=== PATIENT | male | born 1950 | race Caucasian/White ===

== ENCOUNTER → 2020-06-03 14:00 | Outpatient (CLI) | payer MEDICARE, SELFPAY ==
[2020-06-03 15:23] LABS: INR 2.32 (0.9-1.1); Prothrombin Time 22.7 seconds (9.4-11.8)
== END ==
PROVIDERS: Visit Provider Family Medicine
DX: I82.409 Acute embolism and thrombosis of unspecified deep veins of unspecified lower extremity (principal)
CPT/HCPCS: 36415; 85610

== ENCOUNTER → 2020-12-11 14:41 | Outpatient (CLI) | payer MEDICARE, SELFPAY ==
[2020-12-11 15:40] LABS: Basophils % 0.3 % (0.1-2.0); Eosinophils % 0.5 % (0.1-12.0); Hematocrit 46.9 % (42.0-52.0); Hemoglobin 14.9 g/dL (14.1-18.0); Lymphocytes # 1.2 K/mm3 (0.7-4.5); Lymphocytes % 23.7 % (10-50); Mean Corpuscular HGB Conc 31.8 g/dL (31.8-35.4); Mean Corpuscular Hemoglobin 28.5 pg (27.0-31.2); Mean Corpuscular Volume 89.8 fl (80-94); Monocytes # 0.3 K/mm3 (0.1-1.0); Monocytes % 6.8 % (1.7-9.3); Neutrophils # 3.4 K/mm3 (1.8-7.8); Neutrophils % 68.8 % (37.0-80.0); Platelet Count 170 K/mm3 (142-424); Red Blood Count 5.22 M/mm3 (4.60-6.20); Red Cell Distribution Width 15.7 % (11.5-17.5)
[2020-12-11 15:53] LABS: INR 2.02 (0.9-1.1)
[2020-12-11 16:05] LABS: Alanine Aminotransferase 21 U/L (12-78); Albumin Level 4.3 g/dl (3.5-5.0); Albumin/Globulin Ratio 1.4 (1.1-1.8); Alkaline Phosphatase 94 U/L (38-126); Anion Gap 10.3 mEq/L (5-15); Aspartate Amino Transferase 33 U/L (17-59); Bilirubin,Total 0.6 mg/dl (0.2-1.3); Blood Urea Nitrogen 14 mg/dl (9-20); Calcium 9.2 mg/dl (8.4-10.2); Carbon Dioxide 30 mmol/L (22.0-30.0); Chloride 101 mmol/L (98-107); Chol/HDL Ratio 2.6 (1-3.5); Cholesterol 127 mg/dl (140-200); Estimated Glomerular Filt Rate 66 ml/min (>60); GFR (African American) 80 ML/MIN (>60); Glucose 97 mg/dl (74-100); HDL Cholesterol 49 mg/dl (40-60); Potassium 4.3 mmoL/L (3.5-5.1); Sodium 137 mmol/L (136-145); Total Protein,Serum 7.3 g/dl (6.3-8.2); Triglycerides 90 mg/dl (30-150); VLDL Cholesterol 18 mg/dL (0-40)
[2020-12-11 16:22] LABS: Direct LDL Cholesterol 52.97 mg/dL (100-129)
[2020-12-11 16:36] LABS: Prostate Specific Ag Screen 0.5 ng/ml (0.0-4.0)
== END ==
PROVIDERS: Visit Provider Family Medicine
DX: I82.409 Acute embolism and thrombosis of unspecified deep veins of unspecified lower extremity (principal); K29.70 Gastritis, unspecified, without bleeding; E78.5 Hyperlipidemia, unspecified; Z12.5 Encounter for screening for malignant neoplasm of prostate; Z51.81 Encounter for therapeutic drug level monitoring; Z79.01 Long term (current) use of anticoagulants
CPT/HCPCS: 36415; 80053; 80061; 85025; 85610; G0103

== ENCOUNTER → 2021-09-29 18:16 | Outpatient (CLI) | payer MEDICARE, SELFPAY | PROVIDERS: Visit Provider Family Medicine | DX: Z20.822 Contact with and (suspected) exposure to COVID-19 (principal); J32.9 Chronic sinusitis, unspecified; R51.9 Headache, unspecified | CPT/HCPCS: C9803; U0003; U0005 ==

== ENCOUNTER → 2021-11-16 17:14 | Outpatient (CLI) | payer MEDICARE, SELFPAY | PROVIDERS: Visit Provider Family Medicine | DX: U07.1 COVID-19 (principal) | CPT/HCPCS: C9803; U0003; U0005 ==

== ENCOUNTER 2021-11-23 07:46 | Outpatient (CLI) | payer MEDICARE, SELFPAY ==
[2021-11-23] VITALS (8 sets, daily range): BP systolic 114–141; BP diastolic 54–87; PULSE 50–66; RESP 18; TEMP 36.5–36.6; O2SAT 94–97
== END 2021-11-23 11:30 | disposition home or self-care (01) ==
LOC: COVID.OUT 07:47
PROVIDERS: PCP Family Medicine; Visit Provider Family Medicine
DX: U07.1 COVID-19 (principal); Z23 Encounter for immunization
CPT/HCPCS: 96365

== ENCOUNTER → 2023-06-10 11:00 | Outpatient (CLI) | payer MEDICARE, SELFPAY ==
[2023-06-10 18:16] LABS: Basophils % 0.1 % (0.1-2.0); Eosinophils # 0.1 K/mm3 (0.0-0.4); Eosinophils % 1.7 % (0.1-12.0); Hematocrit 44.8 % (42.0-52.0); Hemoglobin 14.4 g/dL (14.1-18.0); Lymphocytes # 1.1 K/mm3 (0.7-4.5); Lymphocytes % 25.7 % (10-50); Mean Corpuscular HGB Conc 32.2 g/dL (31.8-35.4); Mean Corpuscular Hemoglobin 29.8 pg (27.0-31.2); Mean Corpuscular Volume 92.5 fl (80-94); Mean Platelet Volume 8.8 fl (7.4-10.4); Monocytes # 0.4 K/mm3 (0.1-1.0); Monocytes % 10.1 % (1.7-9.3); Neutrophils # 2.7 K/mm3 (1.8-7.8); Neutrophils % 62.4 % (37.0-80.0); Platelet Count 174 K/mm3 (142-424); Red Blood Count 4.84 M/mm3 (4.60-6.20); Red Cell Distribution Width 14.7 % (11.5-17.5); White Blood Count 4.3 K/mm3 (4.8-10.8)
[2023-06-10 18:34] LABS: Alanine Aminotransferase 23 U/L (12-78); Albumin/Globulin Ratio 1.6 (1.1-1.8); Alkaline Phosphatase 93 U/L (38-126); Anion Gap 10.6 mEq/L (5-15); Aspartate Amino Transferase 32 U/L (17-59); Bilirubin,Total 0.4 mg/dl (0.2-1.3); Blood Urea Nitrogen 16 mg/dl (9-20); Calcium 8.8 mg/dl (8.4-10.2); Carbon Dioxide 27 mmol/L (22.0-30.0); Chloride 107 mmol/L (98-107); Chol/HDL Ratio 3.4 (1-3.5); Cholesterol 117 mg/dl (140-200); Estimated Glomerular Filt Rate 65 ml/min (>60); GFR (African American) 79 ML/MIN (>60); Globulin 2.5 g/dL (1.3-3.2); Glucose 88 mg/dl (74-100); HDL Cholesterol 34 mg/dl (40-60); Potassium 3.6 mmoL/L (3.5-5.1); Sodium 141 mmol/L (136-145); Total Protein,Serum 6.5 g/dl (6.3-8.2); Triglycerides 120 mg/dl (30-150); VLDL Cholesterol 24 mg/dL (0-40)
[2023-06-10 18:44] LABS: Direct LDL Cholesterol 60.44 mg/dL (100-129)
[2023-06-10 19:02] LABS: Prostate Specific Ag Screen 0.5 ng/ml (0.0-4.0)
== END ==
PROVIDERS: PCP Family Medicine; Visit Provider Family Medicine
DX: M25.562 Pain in left knee (principal); Z12.5 Encounter for screening for malignant neoplasm of prostate; E78.5 Hyperlipidemia, unspecified
CPT/HCPCS: 80053; 80061; 85025; G0103

== ENCOUNTER 2024-06-07 10:15 | Outpatient (CLI) | payer MEDICARE, SELFPAY ==
[2024-06-07 18:12] LABS: Basophils % 0.7 % (0.1-2.0); Eosinophils % 0.7 % (0.1-12.0); Hematocrit 47.7 % (42.0-52.0); Hemoglobin 15.6 g/dL (14.1-18.0); Lymphocytes # 0.9 K/mm3 (0.7-4.5); Lymphocytes % 20.7 % (10-50); Mean Corpuscular HGB Conc 32.6 g/dL (31.8-35.4); Mean Corpuscular Hemoglobin 32.5 pg (27.0-31.2); Mean Corpuscular Volume 99.5 fl (80-94); Mean Platelet Volume 9.3 fl (7.4-10.4); Monocytes # 0.4 K/mm3 (0.1-1.0); Monocytes % 9.5 % (1.7-9.3); Neutrophils # 2.9 K/mm3 (1.8-7.8); Neutrophils % 68.3 % (37.0-80.0); Platelet Count 164 K/mm3 (142-424); Red Blood Count 4.79 M/mm3 (4.60-6.20); Red Cell Distribution Width 15.2 % (11.5-17.5); White Blood Count 4.3 K/mm3 (4.8-10.8)
[2024-06-07 18:35] LABS: Alanine Aminotransferase 38 U/L (12-78); Albumin Level 3.9 g/dl (3.5-5.0); Albumin/Globulin Ratio 1.4 (1.1-1.8); Alkaline Phosphatase 100 U/L (38-126); Aspartate Amino Transferase 38 U/L (17-59); Bilirubin,Total 0.5 mg/dl (0.2-1.3); Blood Urea Nitrogen 14 mg/dl (9-20); Calcium 9.2 mg/dl (8.4-10.2); Carbon Dioxide 26 mmol/L (22.0-30.0); Chloride 108 mmol/L (98-107); Chol/HDL Ratio 3.2 (1-3.5); Cholesterol 114 mg/dl (140-200); Estimated Glomerular Filt Rate 65 ml/min (>60); GFR (African American) 79 ML/MIN (>60); Globulin 2.7 g/dL (1.3-3.2); Glucose 95 mg/dl (74-100); HDL Cholesterol 36 mg/dl (40-60); Sodium 138 mmol/L (136-145); Total Protein,Serum 6.6 g/dl (6.3-8.2); Triglycerides 106 mg/dl (30-150); VLDL Cholesterol 21 mg/dL (0-40)
[2024-06-07 18:46] LABS: Direct LDL Cholesterol 58.67 mg/dL (100-129)
[2024-06-07 19:05] LABS: Thyroid Stimulating Hormone 0.72 uIU/mL (0.465-4.68)
== END 2024-06-07 23:59 | disposition home or self-care (01) ==
LOC: LAB.DROPOF 06-08 10:07
PROVIDERS: PCP Family Medicine; Visit Provider Family Medicine
DX: E78.5 Hyperlipidemia, unspecified (principal); Z12.5 Encounter for screening for malignant neoplasm of prostate
CPT/HCPCS: 80050; 80053; 80061; 84443; 85025

== ENCOUNTER 2024-06-11 10:08 | Outpatient (CLI) | payer MEDICARE, SELFPAY ==
[2024-06-11 18:51] LABS: INR 1.11 (0.9-1.1); Prothrombin Time 12.3 seconds (10.1-12.5)
== END 2024-06-11 23:59 | disposition home or self-care (01) ==
LOC: LAB.DROPOF 06-12 10:09
PROVIDERS: PCP Family Medicine; Visit Provider Family Medicine
DX: I82.409 Acute embolism and thrombosis of unspecified deep veins of unspecified lower extremity (principal)
CPT/HCPCS: 85610

== ENCOUNTER 2024-08-17 10:04 | Outpatient (CLI) | payer MEDICARE, SELFPAY ==
[2024-08-17 18:46] LABS: Basophils % 0.3 % (0.1-2.0); Eosinophils % 0.8 % (0.1-12.0); Hematocrit 46.5 % (42.0-52.0); Hemoglobin 14.4 g/dL (14.1-18.0); Lymphocytes # 0.8 K/mm3 (0.7-4.5); Lymphocytes % 18.8 % (10-50); Mean Corpuscular Hemoglobin 30.4 pg (27.0-31.2); Mean Corpuscular Volume 98.1 fl (80-94); Mean Platelet Volume 7.9 fl (7.4-10.4); Monocytes # 0.3 K/mm3 (0.1-1.0); Monocytes % 7.7 % (1.7-9.3); Neutrophils # 3.2 K/mm3 (1.8-7.8); Neutrophils % 72.5 % (37.0-80.0); Platelet Count 216 K/mm3 (142-424); Red Blood Count 4.74 M/mm3 (4.60-6.20); Red Cell Distribution Width 14.5 % (11.5-17.5); White Blood Count 4.4 K/mm3 (4.8-10.8)
[2024-08-17 20:03] LABS: Prostate Specific Ag Screen 0.5 ng/ml (0.0-4.0)
== END 2024-08-17 23:59 | disposition home or self-care (01) ==
LOC: LAB.DROPOF 08-20 10:04
PROVIDERS: PCP Family Medicine; Visit Provider Family Medicine
DX: E78.5 Hyperlipidemia, unspecified (principal); Z12.5 Encounter for screening for malignant neoplasm of prostate
CPT/HCPCS: 85025; G0103

== ENCOUNTER 2025-09-25 15:30 | Outpatient (CLI) | payer MEDICARE, SELFPAY ==
[2025-09-25 21:09] LABS: Hematocrit 45.9 % (42.0-52.0); Hemoglobin 14.7 g/dL (14.1-18.0); Immature Granulocytes % 0.4 %; Mean Corpuscular HGB Conc 32.0 g/dL (31.8-35.4); Mean Corpuscular Hemoglobin 30.4 pg (27.0-31.2); Mean Corpuscular Volume 94.8 fl (80-94); Nucleated Red Blood Cells % 0 %; Platelet Count 180 K/mm3 (142-424); Red Blood Count 4.84 M/mm3 (4.60-6.20); Red Cell Distribution Width-SD 53.1 fL; White Blood Count 5.1 K/mm3 (4.8-10.8)
[2025-09-25 21:47] LABS: Alanine Aminotransferase 27 U/L (12-78); Albumin Level 3.6 g/dl (3.5-5.0); Albumin/Globulin Ratio 0.9 (1.1-1.8); Alkaline Phosphatase 134 U/L (38-126); Anion Gap 12.6 mEq/L (5-15); Aspartate Amino Transferase 33 U/L (17-59); Bilirubin,Total 0.8 mg/dl (0.2-1.3); Blood Urea Nitrogen 16 mg/dl (9-20); Calcium 9.2 mg/dl (8.4-10.2); Carbon Dioxide 24 mmol/L (22.0-30.0); Chloride 106 mmol/L (98-107); Cholesterol 109 mg/dl (140-200); Creatinine,Serum 1.30 mg/dl (0.66-1.25); Estimated Glomerular Filt Rate 54 ml/min (>60); GFR (African American) 65 ML/MIN (>60); Globulin 3.9 g/dL (1.3-3.2); Glucose 113 mg/dl (74-100); HDL Cholesterol 33 mg/dl (40-60); Potassium 4.6 mmoL/L (3.5-5.1); Sodium 138 mmol/L (136-145); Total Protein,Serum 7.5 g/dl (6.3-8.2); Triglycerides 99 mg/dl (30-150)
[2025-09-25 22:36] LABS: Hepatitis C Ab Qual. W/ RFX NEGATIVE (Negative)
--- OUTSIDE RECORDS SUMMARY | 2025-09-26 13:31 | XMS_ITS | Clinical Summary ---
Author Organization [facility] Address [address] [place] [id number] Care Team Providers Care Key Person Name Role Phone None, None Primary Care Provider Unavailabl e Allergies Active Allergy Reactions Criticality Noted Date Comments Oxycodone-Acetaminophen Diarrhea 05/22/2024 Ok w tylenol Medications omeprazole (PriLOSEC) 20 mg capsule Take 20 mg by mouth 2 times daily. Active HYDROcodone-Juan Carlos taminophen (NORCO) 7.5-325 mg per tablet Take 1 Tablet by mouth 2 times daily. Active clonazePAM (KlonoPIN) 2 mg tablet Take 2 mg by mouth 2 times daily. Active atorvastatin (LIPITOR) 40 mg Tablet Take 40 mg by mouth daily. Active rivaroxaban (XARELTO) 20 mg Tablet Take 20 mg by mouth daily. Active FLUoxetine (PROzac) 20 mg capsule Take 20 mg by mouth nightly. Active Levocetirizine (Xyzal) 5 mg Tablet Take 5 mg by mouth nightly. Active docusate sodium (COLACE) 100 mg capsule Take 1 Capsule (100 mg) by mouth 2 times daily as needed for Constipation . 30 Capsule 06/14/2024 10:39 AM EDT 06/14/2024 Active Active Problems Problem Noted Date Diagnosed Date Primary osteoarthritis of left knee 05/22/2024 Family History Medical History Relation Name Comments Anesthesia Complications Neg Hx Heart Problems Neg Hx Social History Tobacco Use Types Packs/Day Years Used Date Smoking Tobacco: Former Cigarettes Q uit: 1998 Smokeless Tobacco: Never Alcohol Use Standard Drinks/Week Comments Not Currently 0 (1 standard drink = 0.6 oz pur e alcohol) Sex and Gender Information Value Date Recorded Sex Assigned at Not on file Legal Sex Male 9:50 AM EDT Gender Identity Not on file Sexual Orientation Not on file Last Filed Vital Signs Vital Sign Reading Time Taken Comments Blood Pressure 109/73 06/14/2024 10:02 AM EDT Pulse 62 06/14/2024 10:02 AM EDT Temperature 36.2 C (97.1 F) 06/14/2024 9:45 AM EDT Respiratory Rate 16 06/14/2024 10:02 AM EDT Oxygen Saturation 93% 06/14/2024 10:02 AM EDT Inhaled Oxygen Concentration - - Weight 99.8 kg (220 lb 0.3 oz) 06/14/2024 5:59 A M EDT Height 180.3 cm (5' 11 ) 06/14/2024 5:59 AM EDT Body Mass Index 30.69 06/14/2024 5:59 AM EDT Plan of Treatment Not on file Medical Devices Implanted Type Area Plastic Mould Maker Device Identifier Shelf Expiration Date Model / Serial / Lot Attune Fem Pcr Sz 7 Lt - [id number] Implanted:Qty: 1 on 06/14/2024 by Glen Michelle MD at [facility] Left: Knee CARON \Safe N Clear\ Tout [id number] 07/28/2033 [id number] / / [id number] Attune Knee System Tibial Base Affixium Fixed Bearing Size 6 - [id number] Implanted:Qty: 1 on 06/14/2024 by Glen Michelle MD at [facility] Left: Knee CARON \T\ Tout [id number] 04/27/2034 [id number] / / [id number] Attune Tib Ins Fxd Bearing Med Stbld Sz 7 Lt 5mm - [id number] Implanted:Qty: 1 on 06/14/2024 by Glen Michelle MD at [facility] Left: Knee CARON \T\ Tout [id number] 08/27/2031 [id number] / / [id number] Attune Patella Medialized Anatomic 38mm Cemented Aox - [id number] Implanted:Qty: 1 on 06/14/2024 by Glen Michelle MD at [facility] Left: Knee * J \T\ J DEPUY [id number] 03/27/2029 [id number] / / [id number] Cement Bone Simplex Hv - [id number] Implanted:Qty: 1 on 06/14/2024 by Glen Michelle MD at [facility] Left: Knee [employer] [id number] 07/28/2025 [id number] / / [id number] - [id number] Implanted:Qty: 1 on 06/14/2024 by Glen Michelle MD at [facility] Left: Knee CARON \T\ [employer] [id number] / / Insurance [employer] MEDICARE Care Teams Key Person Relationship Specialty Start Date End Date None, None [address] [place] [address] PCP - General 06/14/24
== END 2025-09-25 23:59 | disposition home or self-care (01) ==
LOC: LAB.DROPOF 09-26 13:26
PROVIDERS: PCP Family Medicine; Visit Provider Family Medicine
DX: E78.5 Hyperlipidemia, unspecified (principal); Z12.5 Encounter for screening for malignant neoplasm of prostate; I10 Essential (primary) hypertension; Z11.59 Encounter for screening for other viral diseases
CPT/HCPCS: 80053; 80061; 85025; 86803; 87389; G0103